=== PATIENT | male | born 1995 | race Two or more races ===

== ENCOUNTER 2021-07-17 14:11 | Emergency (ER) | payer SELFPAY ==
[~2021-07-17] VITALS: Ht 165.1 cm; Wt 109.7 kg
[2021-07-17 15:39] LABS: BASO # 0.1 x10^3/uL (0.0-0.2); BASO % 1 % (0-3); EOS # 0.5 x10^3/uL (0.0-0.7); EOS % 5 % (0-3); HEMATOCRIT 45.3 % (39.0-53.0); HEMOGLOBIN 15.6 g/dL (13.0-17.5); LYMPH # 1.9 x10^3/uL (1.0-4.8); LYMPH % 18 % (24-48); MEAN CORPUSCULAR HEMOGLOBIN 29 pg (25-35); MEAN CORPUSCULAR HGB CONC 34 g/dL (31-37); MEAN CORPUSCULAR VOLUME 85 fL (79-100); MONO % 9 % (0-9); NEUT # 7.3 x10^3/uL (1.8-7.7); NEUT % 68 % (31-73); PLATELET COUNT 241 x10^3/uL (140-400); RED BLOOD COUNT 5.33 x10^6/uL (4.30-5.70); RED CELL DISTRIBUTION WIDTH 13.2 % (11.5-14.5); WHITE BLOOD COUNT 10.8 x10^3/uL (4.0-11.0)
--- NOTE | 2021-07-17 15:47 | RAD ---
EXAM: Chest, single view. HISTORY: Chest pain. Short of breath. COMPARISON: None. FINDINGS: A frontal view of the chest is obtained. There is no infiltrate, pleural effusion or pneumo thorax. The heart is normal in size. IMPRESSION: No acute pulmonary finding. Electronically signed by: Daniela Cooper MD (07/17/2021 3:44 PM) [id number]
[2021-07-17 15:48] LABS: CALCIUM 8.3 mg/dL (8.5-10.1); CREATININE 0.8 mg/dL (0.7-1.3); GFR 117.8
[2021-07-17 15:55] LABS: ALBUMIN 3.7 g/dL (3.4-5.0); ALBUMIN/GLOBULIN RATIO 0.9 (1.0-1.7); TOTAL BILIRUBIN 0.3 mg/dL (0.2-1.0); TOTAL PROTEIN 7.8 g/dL (6.4-8.2)
--- NOTE | 2021-07-17 16:11 | PHYS DOC ---
Past Medical History Past Surgical History: No Surgical History (SALVATORE CORTEZ) Smoking Status: Never Smoker Alcohol Use: None (SALVATORE CORTEZ) General Adult EDM: Chief Complaint: CHEST PAIN HPI: HPI: Patient is a 25 year old male who presents with shortness of breath, cough and chest pain/tightness for the past 2 weeks. Patient tested Covid positive about 2 weeks ago. He states his symptoms have improved since onset, but the pain when he breathes in or coughs is worse. He reports associated nasal congestion. Patient reports that he took 2 amoxicillin tablets acquired from [place]. He states he felt some anxiety after taking them, as his dad reminded him that he is allergic to amoxicillin. Patient states he had no physical reaction or complaints after taking these. Patient states he was notably anxious after being given diagnosis of COVID-19, but has felt much more calm and reassured over the past 2 weeks. Patient denies fever, chills, generalized weakness, palpitations, sputum production, sore throat. Patient is norwegian speaking. Interview and exam were conducted in norwegian with good understanding and fluid communication. (SALVATORE CORTEZ) Review of Systems: Review of Systems: Constitutional: See HPI Eyes: Denies change in visual acuity, visual field deficits or discharge HENT: See HPI Respiratory: See HPI Cardiovascular: See HPI GI: Denies abdominal pain, nausea, vomiting, bloody stools or diarrhea : Denies dysuria or hematuria Musculoskeletal: Denies back pain or joint pain Integument: Denies rash or other skin lesion Neurologic: Denies headache, focal weakness or sensory changes (SALVATORE CORTEZ) Heart Score: C/O Chest Pain: Yes HEART Score for Chest Pain: HEART Score for Chest Pain Response (Comments) Value History Slighlty/Non-Suspicious 0 ECG Normal 0 Age < 45 0 Risk Factors No Risk Factors 0 Total 0 Risk Factors: Risk Factors: DM, Current or recent (<one month) smoker, HTN, HLP, family history of CAD, obesity. Risk Scores: Score 0 - 3: 2.5% MACE over next 6 weeks - Discharge Home Score 4 - 6: 20.3% MACE over next 6 weeks - Admit for Clinical Observation Score 7 - 10: 72.7% MACE over next 6 weeks - Early Invasive Strategies (SALVATORE CORTEZ) Allergies: Allergies: Allergies Coded Allergies Type Severity Reaction Last Updated Verified amoxicillin Allergy Unknown 07/17/21 Yes (SALVATORE CORTEZ) Physical Exam: PE: Constitutional: Obese, well-groomed, no acute distress, non-toxic appearance. HENT: Normocephalic, atraumatic, bilateral external ears normal, nose normal. Eyes: EOMI, conjunctiva normal, no discharge. Neck: Normal range of motion, no stridor. Lungs & Thorax: Equal thoracic expansion, reproducible central chest tenderness without crepitus. Skin: Warm, dry, no erythema, no rash. Extremities: No tenderness, no cyanosis, no clubbing, ROM intact, no edema. Neurologic: Alert and oriented x4, steady and symmetrical gait, no focal deficits noted. (SALVATORE CORTEZ) Current Patient Data: Labs: Laboratory Tests Test 07/17/21 15:32 White Blood Count 10.8 x10^3/uL (4.0-11.0) Red Blood Count 5.33 x10^6/uL (4.30-5.70) Hemoglobin 15.6 g/dL (13.0-17.5) Hematocrit 45.3 % (39.0-53.0) Mean Corpuscular Volume 85 fL (79-100) Mean Corpuscular Hemoglobin 29 pg (25-35) Mean Corpuscular Hemoglobin Concent 34 g/dL (31-37) Red Cell Distribution Width 13.2 % (11.5-14.5) Platelet Count 241 x10^3/uL (140-400) Neutrophils (%) (Auto) 68 % (31-73) Lymphocytes (%) (Auto) 18 % (24-48) L Monocytes (%) (Auto) 9 % (0-9) Eosinophils (%) (Auto) 5 % (0-3) H Basophils (%) (Auto) 1 % (0-3) Neutrophils # (Auto) 7.3 x10^3/uL (1.8-7.7) Lymphocytes # (Auto) 1.9 x10^3/uL (1.0-4.8) Monocytes # (Auto) 1.0 x10^3/uL (0.0-1.1) Eosinophils # (Auto) 0.5 x10^3/uL (0.0-0.7) Basophils # (Auto) 0.1 x10^3/uL (0.0-0.2) Sodium Level 137 mmol/L (136-145) Potassium Level 4.0 mmol/L (3.5-5.1) Chloride Level 105 mmol/L (98-107) Carbon Dioxide Level 31 mmol/L (21-32) Anion Gap 1 (6-14) L Blood Urea Nitrogen 20 mg/dL (8-26) Creatinine 0.8 mg/dL (0.7-1.3) Estimated GFR (Cockcroft-Gault) 117.8 BUN/Creatinine Ratio 25 (6-20) H Glucose Level 130 mg/dL (70-99) H Calcium Level 8.3 mg/dL (8.5-10.1) L Total Bilirubin 0.3 mg/dL (0.2-1.0) Aspartate Amino Transferase (AST) 25 U/L (15-37) Alanine Aminotransferase (ALT) 60 U/L (16-63) Alkaline Phosphatase 92 U/L (46-116) Total Protein 7.8 g/dL (6.4-8.2) Albumin 3.7 g/dL (3.4-5.0) Albumin/Globulin Ratio 0.9 (1.0-1.7) L Laboratory Tests 07/17/21 15:32 Laboratory Tests 07/17/21 15:32 Vital Signs: Vital Signs Date Time Temp Pulse Resp B/P (MAP) Pulse Ox O2 Delivery O2 Flow Rate FiO2 07/17/21 15:11 98.6 93 20 111/75 (87) 97 Room Air 98.6 (SALVATORE CORTEZ) EKG: EKG: EKG Interpreted by Dr. Dumont at 1420: Regular rate and rhythm 89 bpm with no ectopic beats. QT 366 ms/QTc 446 ms. No STEMI. (SALVATORE CORTEZ) Radiology/Procedures: Radiology/Procedures: PROCEDURE: CHEST AP ONLY EXAM: Chest, single view. HISTORY: Chest pain. Short of breath. COMPARISON: None. FINDINGS: A frontal view of the chest is obtained. There is no infiltrate, pleural effusion or pneumothorax. The heart is normal in size. IMPRESSION: No acute pulmonary finding. Electronically signed by: Daniela Cooper MD (07/17/2021 3:44 PM) [id number] (SALVATORE CORTEZ) Course & Med Decision Making: Course & Med Decision Making Pertinent Labs and Imaging studies reviewed. (See chart for details) Patient is a 25-year-old male with known COVID-19 infection who presents today with shortness of breath, cough and chest tightness. Work-up will include EKG, chest x-ray, labs that include troponin. Work-up today is very reassuring. Patient was made aware of the lack of distressing findings. Patient will be provided with incentive spirometer to use at home. Discussed supportive treatment measures with the patient and his family member at bedside. All of his questions were answered. Patient was provided with return precautions. He understands and is agreeable to discharge plan. (SALVATORE CORTEZ) Dragon Disclaimer: Dragon Disclaimer: This electronic medical record was generated, in whole or in part, using a voice recognition dictation system. (SALVATORE CORTEZ) Departure Departure Impression: Primary Impression: COVID-19 virus infection Additional Impression: Intercostal myalgia Disposition: HOME / SELF CARE / HOMELESS Condition: STABLE Patient Instructions: Chest Wall Pain, [id number]-Afst, Incentive Spirometer Additional Instructions: Siga las siguientes medidas de tratamiento de apoyo: - Humidificador de vapor fro con agua corriente al lado de la cama mientras duerme - Mucinex (guaifenesina) segn instrucciones de la caja - Tessalon perles (benzonatato) para la tos, especialmente por la noche antes de acostarse - Alternar ibuprofeno y paracetamol cada cuatro horas para kaiser corporales/ fiebre/dolor de marcos - Utilice el espirmetro de incentivo 5 veces al da con 10 respiraciones pr ofundas cada vez Si le recetaron antibiticos, tmelos segn las indicaciones. Le swift hecho uziel prueba o le swift diagnosticado uziel infeccin por COVID-19. Es uziel infeccin causada por un nuevo tipo de coronavirus. COVID-19 causar sntomas de gripe leves o similares a los de un resfriado en la mayora. Puede causar sntomas ms graves, parviz problemas para respirar en algunos. No hay tratamiento para el COVID-19. El cuerpo eliminar la infeccin con el tiempo. El autocuidado ayudar a aliviar las molestias. Pasos a seguir: - Descansar segn sea necesario. - Elija alimentos saludables que incluyan frutas y verduras. Mary agua yves todo el da. - Duerma lo suficiente cada noche. - Si fuma, trate de dejarlo. Puede facilitar la respiracin. - Evite el alcohol. - Mantenga a los dems saludables - El virus puede propagarse a otros. Las gotas se liberan cada vez que estornuda o tose. Las gotas pueden entrar en la boca, la nariz o los ojos de las personas cercanas a usted y provocar uziel infeccin. Para reducir las posibilidades de propagar el COVID-19 a otras personas: Qudese en casa hasta que edmond mdico le haya dicho que es seguro irse. Si mateus positivo, esto significar permanecer aislado hasta que ambos de los siguientes jayme ciertos: - Swift pasado al menos 10 boles desde el inicio de la enfermedad. - Est jacky de fiebre yves al menos 72 horas sin el uso de medicamentos. Yves arina tiempo: - Evite las reas pblicas, los eventos o el transporte. No regrese al trabajo oa la escuela hasta que edmond mdico le haya dicho que es seguro hacerlo. - Llame con antelacin si necesita acudir a un centro mdico. Hgales saber que puede tener COVID-19. Les ayudar a guiarlo a dnde ir. Alicia pueden pedirle que use uziel mscara facial cuando venga a la oficina. - Si llama a los servicios mdicos de emergencia, infrmeles que puede tener COVID-19. Mientras est en casa: - Trate de evitar el contacto cercano con otras personas. Mantngase a unos 6 pies de distancia. - Si es posible, pase la mayor parte de edmond tiempo en uziel habitacin separada de los dems. - Use uziel mscara facial si estar en contacto cercano con otras personas, parviz compartir uziel habitacin o un vehculo. - Pdale a alguien que limpie las superficies comunes de la casa. Use limpiadores domsticos todos los boles en reas parviz manijas de compa, mostradores o fregaderos. - Toser o estornudar en un pauelo desechable. Deseche el pauelo inmediatamente despus de usarlo. Si no hay un pauelo disponible, tosa o estornude en el codo. - Lavarse las neli con frecuencia. Lvelos despus de estornudar o toser. Use agua y jabn y lave o por lo menos 20 segundos. Se puede usar un limpiador de neli a base de alcohol si no hay agua y jabn disponibles. - No prepare comida para otros. Evite compartir artculos personales parviz tenedores, cucharas o cepillos de dientes. - Evite el contacto cercano con mascotas mientras est enfermo. No hay evidencia de que el virus pase a las mascotas. Arina es un paso de seguridad hasta que se sepa ms sobre arina virus. - El aislamiento puede ser frustrante. La interaccin social puede ayudar. Mantngase en contacto con amigos y familiares a travs del telfono y las opciones tecnolgicas. Todava puede interactuar con otras personas en edmond hogar, solo mantenga uziel distancia cantrell de aproximadamente 6 pies. Hacer un seguimiento: - El consultorio de edmond mdico se comunicar con usted para sulma si hay algn cambio en edmond angi. - Es posible que se le pida que lleve un registro de los sntomas para compartir con ellos. Tambin le avisarn cuando tenga autorizacin para volver a estar en pblico. Comunquese con edmond mdico si edmond recuperacin no va parviz esperaba. Obtenga atencin de emergencia si tiene problemas parviz: - Dificultad para respirar con saturacin de oxgeno <90% - Dolor o presin en el pecho sin parar - Cambios en la conciencia, confusin o problemas para despertarse - Los labios o la hans tienen un color azulado - Empeoramiento de los sntomas Si gissell que tiene uziel emergencia, llame a los servicios mdicos de emergencia de inmediato. Tomado de [facility] Benzonatate (BENZONATATE) 100 Mg Capsule 1-2 CAP PO HS, #30 CAP Prov: SALVATORE CORTEZ 07/17/21 Attending Signature Attending Signature I have reviewed the PA/CELL OPERATION SUPERVISOR's note and plan of care. I was available for consultation as needed during the patient's visit in the emergency department. I agree with the clinical impression, plan, and disposition. (RADHA DUMONT DO) SALVATORE CORTEZ Jul 17, 2021 16:11 RADHA DUMONT DO Jul 18, 2021 11:09
[2021-07-17] MEDS ORDERED: BENZ-8 PO (16:47)
[2021-07-17 17:02] VITALS: BP 127/87
--- NOTE | 2021-07-17 18:16 | EKG ---
[facility] [address] [place] [address] Test Date: 2021-07-17 Test Time: 14:18:48 Pat Name: MIKE TO Department: Room: Gender: M Cranberry Grower: : 1995 Requested By: SALVATORE CORTEZ Order Number: [id number] Reading MD: Kirill Brand Measurements Intervals [place] Rate: 89 P: 36 MS: 144 QRS: 13 QRSD: 96 T: 29 QT: 366 QTc: 446 Interpretive Statements SINUS RHYTHM INCOMPLETE RIGHT BUNDLE BRANCH BLOCK Electronically Signed On 07-19-2021 9:27:14 IN CLASS SPECIAL EDUCATION TEACHER by Kirill Brand
== END 2021-07-17 17:00 | disposition home or self-care (01) ==
LOC: ER 14:11
DX: U07.1 COVID-19 (principal); M79.18 Myalgia, other site
CPT/HCPCS: 36415; 71045; 80053; 84484; 85025; 93005; 99285-25